=== PATIENT | female | born 1990 | race Caucasian/White ===

== ENCOUNTER 2020-08-07 08:29 | Emergency (ER) | payer SELFPAY ==
[2020-08-07] MEDS ORDERED: NAPROSYN500 MG PO (11:12)
[2020-08-07] MEDS ORDERED: CYCLOBENZAPRINE10 MG PO (11:12)
== END 2020-08-07 11:23 | disposition home or self-care (01) ==
LOC: ER1 08:29
DX: S39.012A Strain of muscle, fascia and tendon of lower back, initial encounter (principal); F17.210 Nicotine dependence, cigarettes, uncomplicated; W17.89XA Other fall from one level to another, initial encounter; Z88.5 Allergy status to narcotic agent; Z88.2 Allergy status to sulfonamides
CPT/HCPCS: 72131; 72170; 72220; 96372; 99283; J1885

== ENCOUNTER 2020-10-09 01:53 | Emergency (ER) | payer SELFPAY ==
[~2020-10-09 01:53] MED LIST: CYCLOBENZAPRINE10 MG PO; NAPROSYN500 MG PO
== END 2020-10-09 04:47 | disposition home or self-care (01) ==
LOC: ER1 01:53
DX: S76.011A Strain of muscle, fascia and tendon of right hip, initial encounter (principal); F17.200 Nicotine dependence, unspecified, uncomplicated; Z88.2 Allergy status to sulfonamides; Z79.899 Other long term (current) drug therapy; X50.0XXA Overexertion from strenuous movement or load, initial encounter
CPT/HCPCS: 73502; 99283